=== PATIENT | female | born 1975 | race Caucasian/White ===

== ENCOUNTER 2019-03-08 12:12 | Day surgery (SDC) | payer MEDICAID ==
[~2019-03-08] VITALS: Ht 162.6 cm; Wt 65.0 kg
[~2019-03-08 12:12] MED LIST: LIDOCAINE/PF 2% 5 ML VIAL INJ ONE; PROPOFOL 1% 20 ML VIAL IVP ONE; SODIUM CHLORIDE 0.9% 1,000 ML IV ONE
[2019-03-08] MEDS ORDERED: SODIUM CHLORIDE 0.9% 1,000 ML IV ONE (12:30)
[2019-03-08] MEDS ORDERED: FLUO-191 PO (13:10)
[2019-03-08] MEDS ORDERED: OMEP20 PO (13:10)
[2019-03-08] MEDS ORDERED: HYDR-3110 PO (13:10)
== END 2019-03-08 16:00 | disposition home or self-care (01) ==
LOC: SURGERY 12:12
PROVIDERS: ATTEND Student in an Organized Health Care Education/Training Program
DX: D12.5 Benign neoplasm of sigmoid colon (principal); K64.8 Other hemorrhoids; K63.89 Other specified diseases of intestine; F32.9 Major depressive disorder, single episode, unspecified; Z85.038 Personal history of other malignant neoplasm of large intestine; Z90.49 Acquired absence of other specified parts of digestive tract; Z98.890 Other specified postprocedural states; Z80.0 Family history of malignant neoplasm of digestive organs; Z83.3 Family history of diabetes mellitus; Z72.89 Other problems related to lifestyle
CPT/HCPCS: 36415; 45380; 45385; 84702; 88305; C1769; J2704; J3490; J7030